=== PATIENT | male | born 1990 | race Caucasian/White ===

== ENCOUNTER 2023-11-10 09:46 | Outpatient (CLI) | payer OTHER | END 2023-11-10 09:53 | disposition home or self-care (01) | LOC: SONOGRAMA 09:46 | PROVIDERS: ATTEND Pathology Anatomic Pathology & Clinical Pathology | DX: D44.0 Neoplasm of uncertain behavior of thyroid gland (principal); E04.2 Nontoxic multinodular goiter ==

== ENCOUNTER 2024-01-05 14:33 | Outpatient (CLI) | payer OTHER | END 2024-01-05 14:35 | disposition home or self-care (01) | LOC: SONOGRAMA 14:33 | PROVIDERS: ATTEND Pathology Anatomic Pathology & Clinical Pathology | DX: D34 Benign neoplasm of thyroid gland (principal); E04.2 Nontoxic multinodular goiter ==